=== PATIENT | female | born 1960 | race African-American/Black ===

== ENCOUNTER 2016-11-06 12:48 | Emergency (ER) | payer OTHER ==
[2016-11-06 12:54] VITALS: TEMP 97.7
[2016-11-06 13:21] LABS: COLOR YELLOW; LEUKOCYTE ESTERASE,URINE NEGATIVE (NEGATIVE); NITRITE,URINE NEGATIVE (NEGATIVE)
[2016-11-06 13:41] LABS: % IMMATURE GRANULYOCYTES 0.3 % (0.0-1.1); ABSOLUTE IMMATURE GRANULOCYTES 0.02 10^3/uL (0.00-0.10); ADD DIFF? NO; ADD MORPH? NO; ADD SCAN? NO; ATYPICAL LYMPHOCYTE FLAG 0 (0-99); FRAGMENT RBC FLAG 20 (0-99); HEMATOCRIT 40.5 % (38.0-47.0); HEMOGLOBIN 13.2 g/dL (12.6-16.3); LEFT SHIFT FLG 0 (0-99); LIPEMIA HEMOLYSIS FLAG 80 (0-99); MEAN CELL HEMOGLOBIN 25.2 pg (27.9-34.1); MEAN CELL HEMOGLOBIN CONCENTR. 32.6 g/dL (32.4-36.7); MEAN CELL VOLUME 77.4 fL (81.5-99.8); MEAN PLATELET VOLUME 10.7 fL (8.7-11.7); PLATELET CLUMPS FLAG 0 (0-99); PLATELET COUNT 286 10^3/uL (150-400); RED BLOOD CELL COUNT 5.23 10^6/uL (4.18-5.33); RED CELL DISTRIBUTION WIDTH 15.7 % (11.5-15.2)
[2016-11-06] MEDS ORDERED: KETOROLAC 15 MG/1 ML SDV IVP ONE ×2 (14:39)
[2016-11-06 14:40] VITALS: RESP 18
--- NOTE | 2016-11-06 14:43 | EDPHY ---
H & P Stated Complaint: abdominal pain 1 week Time Seen by Provider: 11/06/16 13:14 HPI/ROS: This 56 yo GO PO patient has a one-week history of left lower quadrant pain that increased over the past 48 hours to moderate severity baseline, worse with movement. She describes the pain as achy at baseline movement or pressure to the area. She has never had pain in this location before. She denies any associated symptoms. She has not tried any medications for the pain and she notes no other exacerbating or alleviating factors. She states that she came in today because the pain was increasing in intensity. ROS: No fevers chills or other constitutional symptoms HEENT: No URI symptoms or other complaints Pulmonary: No shortness of breath, cough or pleuritic pain Cardiovascular: No chest pain. GI: No upper belly pain. No nausea or vomiting. No change in her appetite. She reports normal bowel movements. : No urinary symptoms. Integumentary: No skin rash Endocrine: No polyuria or polydipsia Hematologic: No complaints Neuro: She has baseline dysarthria attributable to a previous stroke. No new complaints. Complete review of symptoms is otherwise negative. Source: Patient, Other (Patient was driven in by her female friend who also provides history.) Exam Limitations: No limitations - Medical/Surgical History PMH: Stroke Hx Asthma: Yes Hx Chronic Respiratory Disease: No Hx Diabetes: Yes Hx Cardiac Disease: No Hx Renal Disease: No Hx Cirrhosis: No Hx Alcoholism: No Hx HIV/AIDS: No Hx Splenectomy or Spleen Trauma: No Other PMH: hand surgery, stroke 8 years ago - Social History Smoking Status: Current every day smoker Alcohol Use: None Drug Use: None - Physical Exam Exam: Vital signs are normal with exception of mild hypertension 161/73 General Appearance: Pleasant black female Alert, no distress. Eyes: Pupils equal and round no pallor or injection. ENT, Mouth: Mucous membranes moist. Respiratory: There are no retractions, lungs are clear to auscultation. Cardiovascular: Regular rate and rhythm. No murmur gallop rub. No peripheral edema. Gastrointestinal: Normoactive, soft, moderate left lower quadrant tenderness with no guarding or rebound. Neurological: GCS 15. Patient has mild dysarthria. No other focal deficits are appreciated at this time. Skin: Warm and dry, no rashes. Musculoskeletal: Neck is supple nontender. Extremities are symmetrical, full range of motion. Psychiatric: Patient seems slightly giddy-nervous laughter but otherwise mood and affect are normal DIFFERENTIAL DIAGNOSIS: After history and physical exam differential diagnosis was considered for diverticulitis, constipation, UTI, diverticular abscess Constitutional: Initial Vital Signs Temperature (C) 36.5 C 11/06/16 12:50 Heart Rate 82 11/06/16 12:50 Respiratory Rate 20 11/06/16 12:50 Blood Pressure 161/73 H 11/06/16 12:50 O2 Sat (%) 97 11/06/16 12:50 O2 Delivery Mode Room Air Allergies/Adverse Reactions: No Known Allergies Allergy (Unverified 11/06/16 12:54) Home Medications: Medication Instructions Recorded Sulfamethox/Tmp 800/160 mg 1 tab PO BID #14 tab 11/06/16 [Bactrim Ds] traMADol [Ultram 50 mg (*)] 50 - 100 mg PO Q4 PRN #15 tab 11/06/16 Medical Decision Making ED Course/Re-evaluation: IV normal saline bolus, morphine 4 mg IV, after review of labs with normal creatinine, Toradol IV with improvement in pain. Discussion: Review of labs reveals normal CBC and unremarkable metabolic panel except for mild hyperglycemia. Urinalysis is also negative for infection or hematuria. I think this patient has a early diverticulitis given her classic physical exam findings. I counseled her regarding this. Will treat her with Bactrim. I do not think she has diverticular abscess or other complications given lack of fever, lack of any peritoneal signs and normal CBC. - Data Points Laboratory Results: Laboratory Results 11/06/16 13:30 11/06/16 13:30 Medications Given: Discontinued Medications Ketorolac Tromethamine (Toradol) 15 mg IVP EDNOW ONE Stop: 11/06/16 14:40 Last Admin: 11/06/16 15:06 Dose: Not Given Ketorolac Tromethamine (Toradol) 30 mg IVP EDNOW ONE Stop: 11/06/16 14:40 Last Admin: 11/06/16 15:00 Dose: 30 mg Morphine Sulfate (Morphine) 4 mg IVP EDNOW ONE Stop: 11/06/16 13:25 Last Admin: 11/06/16 13:58 Dose: 4 mg Departure - Departure Disposition: Home, Routine, Self-Care Clinical Impression: Diverticulitis Condition: Good Instructions: Diverticulitis (ED), Diverticulitis Diet (ED) Additional Instructions: Diagnosis: Diverticulitis Plan: Drink plenty fluids Ibuprofen if needed for pain-next does not tell 9 o'clock at [id number] mg per 6 hours as needed. Tylenol in addition as needed Tramadol in addition if needed. No driving, or alcohol on tramadol Bactrim antibiotic as prescribed Return for any significant worsening despite the treatment plan Follow up with her primary care physician for a recheck for any ongoing symptoms last beyond the next 5-7 days despite the treatment plan Referrals: Kalyan Freitas MD [[facility] [place] Primary Care Provider] - As per Instructions Prescriptions: Sulfamethox/Tmp 800/160 mg [Bactrim Ds] 1 tab PO BID #14 tab traMADol [Ultram 50 mg (*)] 50 - 100 mg PO Q4 PRN #15 tab PRN Reason: breakthrough pain
[2016-11-06] MEDS ORDERED: KETOROLAC 30 MG/1 ML SDV ONE (14:59)
[2016-11-06 15:05] LABS: ALANINE AMINOTRANSFERASE 30 IU/L (9-52); ALBUMIN 3.8 g/dL (3.5-5.0); ALKALINE PHOSPHATASE 107 IU/L (38-126); ANION GAP 12 mEq/L (8-16); ASPARTATE AMINOTRANSFERASE 25 IU/L (14-46); BILIRUBIN,TOTAL 0.3 mg/dL (0.1-1.4); CALCIUM 9.8 mg/dL (8.5-10.4); CARBON DIOXIDE 22 mEq/l (22-31); CHLORIDE 108 mEq/L (97-110); CREATININE 0.7 mg/dL (0.6-1.0); GLOMERULAR FILTRATION RATE > 60; GLUCOSE 260 mg/dL (70-100); POTASSIUM 3.6 mEq/L (3.5-5.2); SODIUM 142 mEq/L (134-144); TOTAL PROTEIN 7.1 g/dL (6.3-8.2)
[2016-11-06 15:10] VITALS: BP 150/87; PULSE 68; O2SAT 95
== END 2016-11-06 15:18 | disposition home or self-care (01) ==
LOC: CED 12:48
DX: K57.92 Diverticulitis of intestine, part unspecified, without perforation or abscess without bleeding (principal); E11.9 Type 2 diabetes mellitus without complications; J45.909 Unspecified asthma, uncomplicated; F17.200 Nicotine dependence, unspecified, uncomplicated
CPT/HCPCS: 80053-PO; 81003-PO; 82947-QW; 85025-PO; 96374; J1885

== ENCOUNTER 2016-12-28 16:17 | Observation (INO) | payer MEDICAID ==
--- NOTE | 2016-12-28 16:29 | CPEKG ---
Heart Rate: 83 RR Interval: 723 P-R Interval: 152 QRSD Interval: 82 QT Interval: 372 QTC Interval: 437 P Lloyd: 56 QRS Lloyd: 44 T Wave Lloyd: 49 EKG Severity - ABNORMAL ECG - EKG Impression: SINUS RHYTHM EKG Impression: LEFT ATRIAL ABNORMALITY Electronically Signed By: Paddy Corrigan 29-Dec-2016 11:07:05
[2016-12-28] MEDS ORDERED: ASPIRIN 81 MG CHEWABLE TAB PO ONE (16:34)
[2016-12-28 16:57] LABS: % IMMATURE GRANULYOCYTES 0.4 % (0.0-1.1); ABSOLUTE IMMATURE GRANULOCYTES 0.03 10^3/uL (0.00-0.10); ADD DIFF? NO; ADD MORPH? NO; ADD SCAN? NO; ATYPICAL LYMPHOCYTE FLAG 0 (0-99); FRAGMENT RBC FLAG 0 (0-99); HEMATOCRIT 42.2 % (38.0-47.0); HEMOGLOBIN 13.8 g/dL (12.6-16.3); LEFT SHIFT FLG 0 (0-99); LIPEMIA HEMOLYSIS FLAG 80 (0-99); MEAN CELL HEMOGLOBIN 25.2 pg (27.9-34.1); MEAN CELL HEMOGLOBIN CONCENTR. 32.7 g/dL (32.4-36.7); MEAN PLATELET VOLUME 11.1 fL (8.7-11.7); PLATELET CLUMPS FLAG 0 (0-99); PLATELET COUNT 275 10^3/uL (150-400); RED BLOOD CELL COUNT 5.48 10^6/uL (4.18-5.33); RED CELL DISTRIBUTION WIDTH 15.1 % (11.5-15.2)
[2016-12-28 17:04] LABS: APTT 28.2 SEC (23.0-38.0); INR 1.02 (0.83-1.16); PROTIME(PATIENT) 13.1 SEC (12.0-15.0)
[2016-12-28 17:13] LABS: ALANINE AMINOTRANSFERASE 40 IU/L (9-52); ALBUMIN 4.3 g/dL (3.5-5.0); ALKALINE PHOSPHATASE 111 IU/L (38-126); ANION GAP 16 mEq/L (8-16); ASPARTATE AMINOTRANSFERASE 27 IU/L (14-46); BILIRUBIN,TOTAL 0.6 mg/dL (0.1-1.4); BILIRUBIN-CONJUGATED 0.5 mg/dL (0.0-0.5); BILIRUBIN-UNCONJUGATED 0.1 mg/dL (0.0-1.1); CALCIUM 9.8 mg/dL (8.5-10.4); CARBON DIOXIDE 19 mEq/l (22-31); CHLORIDE 106 mEq/L (97-110); CREATININE 0.7 mg/dL (0.6-1.0); GLOMERULAR FILTRATION RATE > 60; GLUCOSE 192 mg/dL (70-100); MAGNESIUM 1.8 mg/dL (1.6-2.3); POTASSIUM 3.8 mEq/L (3.5-5.2); SODIUM 141 mEq/L (134-144); TOTAL PROTEIN 7.6 g/dL (6.3-8.2)
--- NOTE | 2016-12-28 17:55 | EDPHY ---
H & P Stated Complaint: left ant cp x2 weeks intermittent and sob. Denies other s/s's Time Seen by Provider: 12/28/16 16:28 HPI/ROS: CHIEF COMPLAINT: Chest pain History by patient HISTORY OF PRESENT ILLNESS: 56-year-old woman with history of hypertension, diabetes and asthma but has been off her medication for over a year for all of the presents complaining of chest pain which she localizes to the left side of her chest but can poorly characterized. It is associated with some diaphoresis from time to time but no and nausea. It is sometimes pleuritic in nature but she denies shortness of breath. She also complains of intermittent right arm and leg swelling. Her symptoms are not clearly brought on by exertion but she can't say they are not relieved by rest either. She has been having them daily , intermittently for the past couple weeks ago she has had similar symptoms in the past she has not sought medical attention. She has never had a cardiac evaluation. She does smoke. Her sister has heart disease but she is unclear what kind. She does not know her cholesterol. The patient has moved to [place] from [place] 1 and half years ago ago. REVIEW OF SYSTEMS: As in HPI, and all other systems reviewed and are negative - Medical/Surgical History Hx Asthma: Yes Hx Chronic Respiratory Disease: No Hx Diabetes: Yes Hx Cardiac Disease: No Hx Renal Disease: No Hx Cirrhosis: No Hx Alcoholism: No Hx HIV/AIDS: No Hx Splenectomy or Spleen Trauma: No Other PMH: Med hx-cva-hx with partial deficit-left sided weakness,asthma. Surg- rt index - Family History Significant Family History: Heart disease - Social History Smoking Status: Current every day smoker - Physical Exam Exam: General Appearance: Alert, obese, non ill-appearing. Eyes: Pupils equal and round no pallor or injection. ENT, Mouth: Mucous membranes moist. Respiratory: Normal, effort, lungs are clear to auscultation. No wheezes, rales or rhonchi. Cardiovascular: Regular rate and rhythm. S1, S2, no murmurs, gallops or rubs appreciated, positive left sternal border tenderness Gastrointestinal: Abdomen is soft and nontender, no masses, bowel sounds normal. Back: No CVA tenderness, no bony tenderness Neurological: Awake, alert and oriented x 3, no pronator drift, normal gait, no pronator drift Skin: Warm and mildly diaphoretic, no rashes. Musculoskeletal: No deformities or tenderness. Extremitie:s full range of motion, no edema Psychiatric: Patient has normal affect, there is no agitation. Constitutional: Initial Vital Signs Temperature (C) 36.3 C 12/28/16 16:27 Heart Rate 85 12/28/16 16:27 Respiratory Rate 24 H 12/28/16 16:27 Blood Pressure 167/102 H 12/28/16 16:27 O2 Sat (%) 97 12/28/16 16:27 O2 Delivery Mode Room Air Allergies/Adverse Reactions: No Known Allergies Allergy (Verified 12/28/16 16:24) Home Medications: Medication Instructions Recorded NK [No Known Home Meds] 12/28/16 Medical Decision Making - Diagnostics Imaging Results: Imaging Impressions Chest X-Ray 12/28/16 16:51 Impression: No acute pulmonary disease. Imaging: I viewed and interpreted images myself ED Course/Re-evaluation: 56-year-old woman with multiple cardiac risk factors presents with hypertension and ongoing chest pain. She was given aspirin. ECG was done immediately which showed normal sinus rhythm at a rate of 83 with left atrial enlargement and nonspecific ST abnormalities but no evidence of acute ischemia. There is no old EKG available for comparison. Chest x-ray showed nothing acute. Labs are notable for slightly low bicarb and elevated blood glucose but not severely elevated. A D-dimer was negative thus ruling out pulmonary embolism in this patient with a low pretest probability. First troponin was negative. Given the patient's multiple cardiac risk factors although there is no evidence for acute myocardial infarction at this time I cannot rule out cardiac angina as the cause of the patient's symptoms. She will therefore be admitted to [facility] for further evaluation treatment. I discussed the case with the hospitalist transportation operations manager, Dr. Schwartz, who accepts the patient in transfer to [facility]. - Data Points Laboratory Results: Laboratory Results 12/28/16 16:38 12/28/16 16:38 12/28/16 12/28/16 12/28/16 16:38 16:38 16:38 WBC 7.48 10^3/uL 10^3/uL (3.80-9.50) RBC 5.48 10^6/uL H 10^6/uL (4.18-5.33) Hgb 13.8 g/dL g/dL (12.6-16.3) Hct 42.2 % % (38.0-47.0) MCV 77.0 fL L fL (81.5-99.8) MCH 25.2 pg L pg (27.9-34.1) MCHC 32.7 g/dL g/dL (32.4-36.7) RDW 15.1 % % (11.5-15.2) Plt Count 275 10^3/uL 10^3/uL (150-400) MPV 11.1 fL fL (8.7-11.7) Neut % (Auto) 45.7 % % (39.3-74.2) Lymph % (Auto) 43.7 % % (15.0-45.0) [place] % (Auto) 8.2 % % (4.5-13.0) Eos % (Auto) 1.6 % % (0.6-7.6) Baso % (Auto) 0.4 % % (0.3-1.7) Nucleat RBC Rel Count 0.0 % % (0.0-0.2) Absolute Neuts (auto) 3.42 10^3/uL 10^3/uL (1.70-6.50) Absolute Lymphs (auto) 3.27 10^3/uL H 10^3/uL (1.00-3.00) Absolute Monos (auto) 0.61 10^3/uL 10^3/uL (0.30-0.80) Absolute Eos (auto) 0.12 10^3/uL 10^3/uL (0.03-0.40) Absolute Basos (auto) 0.03 10^3/uL 10^3/uL (0.02-0.10) Absolute Nucleated RBC 0.00 10^3/uL 10^3/uL (0-0.01) Immature Gran % 0.4 % % (0.0-1.1) Immature Gran # 0.03 10^3/uL 10^3/uL (0.00-0.10) PT INR APTT D-Dimer Sodium 141 mEq/L mEq/L (134-144) Potassium 3.8 mEq/L mEq/L (3.5-5.2) Chloride 106 mEq/L mEq/L (97-110) Carbon Dioxide 19 mEq/l L mEq/l (22-31) Anion Gap 16 mEq/L mEq/L (8-16) BUN 7 mg/dL mg/dL (7-23) Creatinine 0.7 mg/dL mg/dL (0.6-1.0) Estimated GFR > 60 Glucose 192 mg/dL H mg/dL (70-100) Calcium 9.8 mg/dL mg/dL (8.5-10.4) Magnesium 1.8 mg/dL mg/dL (1.6-2.3) Total Bilirubin 0.6 mg/dL mg/dL (0.1-1.4) Conjugated Bilirubin 0.5 mg/dL mg/dL (0.0-0.5) Unconjugated Bilirubin 0.1 mg/dL mg/dL (0.0-1.1) AST 27 IU/L IU/L (14-46) ALT 40 IU/L IU/L (9-52) Alkaline Phosphatase 111 IU/L IU/L (38-126) Creatine Kinase CK-MB (CK-2) Fraction Troponin I < 0.012 ng/mL ng/mL (0.000-0.034) Total Protein 7.6 g/dL g/dL (6.3-8.2) Albumin 4.3 g/dL g/dL (3.5-5.0) Lipase 121 IU/L IU/L (23-300) 12/28/16 12/28/16 16:38 16:38 WBC RBC Hgb Hct MCV MCH MCHC RDW Plt Count MPV Neut % (Auto) Lymph % (Auto) [place] % (Auto) Eos % (Auto) Baso % (Auto) Nucleat RBC Rel Count Absolute Neuts (auto) Absolute Lymphs (auto) Absolute Monos (auto) Absolute Eos (auto) Absolute Basos (auto) Absolute Nucleated RBC Immature Gran % Immature Gran # PT 13.1 SEC SEC (12.0-15.0) INR 1.02 (0.83-1.16) APTT 28.2 SEC SEC (23.0-38.0) D-Dimer 0.30 ug/mLFEU ug/mLFEU (0.00-0.50) Sodium Potassium Chloride Carbon Dioxide Anion Gap BUN Creatinine Estimated GFR Glucose Calcium Magnesium Total Bilirubin Conjugated Bilirubin Unconjugated Bilirubin AST ALT Alkaline Phosphatase Creatine Kinase Cancelled CK-MB (CK-2) Fraction Cancelled Troponin I Cancelled Total Protein Albumin Lipase Medications Given: Discontinued Medications Aspirin (Aspirin) 324 mg PO EDNOW ONE Stop: 12/28/16 16:35 Last Admin: 12/28/16 16:37 Dose: 324 mg Departure - Departure Disposition: [facility] Acute Clinical Impression: Hyperglycemia Chest pain Qualifiers: Chest pain type: unspecified Qualified Code(s): R07.9 - Chest pain, unspecified Hypertension Qualifiers: Hypertension type: unspecified Qualified Code(s): I10 - Essential (primary) hypertension Condition: Fair Referrals: NONE *PRIMARY CARE P,. [Primary Care Provider] - As per Instructions
--- NOTE | 2016-12-28 21:28 | CPEKG ---
Heart Rate: 74 RR Interval: 811 P-R Interval: 156 QRSD Interval: 86 QT Interval: 404 QTC Interval: 449 P [place]: 51 QRS [place]: 59 T Wave [place]: 71 EKG Severity - NORMAL ECG - EKG Impression: SINUS RHYTHM Electronically Signed By: Paddy Corrigan 29-Dec-2016 11:04:24
[2016-12-28] MEDS ORDERED: D50W 25 GM/50 ML SYR IVP PRN (21:44)
[2016-12-28] MEDS ORDERED: ACETAMINOPHEN 325 MG TAB PO PRN (21:44)
[2016-12-28] MEDS ORDERED: ONDANSETRON 4 MG/2 ML VIAL IVP PRN (21:44)
[2016-12-28] MEDS ORDERED: ONDANSETRON DISINTEGRATING 4 MG TAB PO PRN (21:44)
--- NOTE | 2016-12-28 22:13 | GHP ---
[f rep st] HISTORY AND PHYSICAL DATE OF ADMISSION: 12/28/2016 HISTORY OF PRESENT ILLNESS: The patient is a 56-year-old female with a history of hypertension, diab etes, stroke, who presents to urgent care with chest pain. She describes it on the left side of her chest. May or may not radiate to her arm or her jaw. It may or may not be exertional. Not __ as well as complete historian. She had previously been treated with multiple medications for thien rbidities but she stopped taking all of them about a year ago. She smokes intermittently. She has n ot had heart failure symptoms such as PND, orthopnea, or lower extremity edema. She has not had feve r or chills. She has not had sputum. REVIEW OF SYSTEMS: Complete 10-point review of systems conducted, and negative as in the HPI. PAST MEDICAL HISTORY: 1. Hypertension. 2. Diabetes. 3. History of stroke with residual expressive aphasia. 4. Asthma. ALLERGIES: No known drug allergies. HOME MEDICATIONS: None. SOCIAL HISTORY: She smoke cigarettes. Does not drink alcohol. Does not use drugs. Lives with a [facility]. FAMILY HISTORY: Notable for diabetes. PHYSICAL EXAMINATION: VITAL SIGNS: Temp 36.3, blood pressure 167/102, pulse 85, breathing 24 times a minute, 97% on room air. GENERAL: No acute distress. HEENT: Sclerae anicteric. Oropharynx nico r. Mucous membranes moist. NECK: Supple without lymphadenopathy or JVD. LUNGS: Clear to ausculta tion bilaterally. HEART: S1, S2. Without murmur. ABDOMEN: Soft, nontender, nondistended. LOWER EXTREMITIES: Without edema. Calves nontender. SKIN: Without rash. NEUROLOGIC: Shows aphasia. I did not test her left-sided weakness. DATABASE: EKG, interpreted by me, shows sinus at 83 with normal axis and intervals. No ST or T-wave changes. She had a 2nd episode of chest pain, so I repeated and it is unchanged. A chest x-ray, in terpreted by me, shows cardiomegaly with no acute cardiopulmonary disease. LABORATORY DATA: White count 7.5, hematocrit 42, MCV is low at 77, platelets are 275. D-dimer 0.3, sodium 141, potassium 3.8, chloride 106, bicarb 19, BUN 7, creatinine 0.7, glucose 192. LFTs normal. Troponin less than 0.012. I discussed the case with Dr. Veronica Trejo. ASSESSMENT/PLAN: A 56-year-old female with chest pain. 1. Chest pain. Pulmonary embolism is ruled out with D-dimer. I do have concern that this could rep resent an anginal equivalent although her story is somewhat shifty. We will cycle troponins and chec k a stress test in the morning. We will do an exercise treadmill. Also order an echocardiogram give n her long-standing history of hypertension that is untreated. 2. Diabetes. We will put her on insulin sliding scale. Check a hemoglobin A1c. This will help wit h a choice to pursue insulin versus pills. 3. Hypertension. I started her on lisinopril. 4. Microcytosis. Check iron studies. I doubt she has had a colonoscopy. 5. History of cerebrovascular accident. Start her on aspirin. 6. Chest pain addendum. We will check a lipid panel in the morning. PROPHYLAXIS: Pharmacologic prophylaxis indicated if in the hospital longer than 24 hours. DISPOSITION: Observation status. /[id number]/MODL
[2016-12-29 05:40] LABS: CHOLESTEROL 291 mg/dL (140-220); CHOLESTEROL/HDL RATIO 6.61 RATIO (1.00-4.44); HIGH DENSITY LIPOPROTEIN 44 mg/dL (40-85); LDL/HDL RATIO 4.91 RATIO (1.00-3.22); LOW DENSITY LIPOPROTEIN 216 mg/dL (80-100); NON-HIGH DENSITY LIPOPROTEIN 247 mg/dL (90-129); TRIGLYCERIDE 155 mg/dL (35-135); VERY LOW DENSITY LIPOPROTEINS 31 mg/dL (8-25)
[2016-12-29 05:49] LABS: % SATURATION 16 % (20-55); TOTAL IRON BINDING CAPACITY 301 ug/dL (260-490)
[2016-12-29 05:53] LABS: TROPONIN I < 0.012 ng/mL (0.000-0.034)
[2016-12-29 06:16] LABS: FERRITIN - BCH 92.7 ng/mL (6.2-264.0)
[2016-12-29 07:17] VITALS: TEMP 98.3
[2016-12-29] MEDS ORDERED: ENOXAPARIN 30 MG/0.3 ML SYR SC SCH (09:00)
[2016-12-29] MEDS ORDERED: ASPIRIN 81 MG CHEWABLE TAB PO SCH (09:00)
[2016-12-29] MEDS ORDERED: LISINOPRIL 5 MG TAB PO SCH (09:00)
[2016-12-29] MEDS ORDERED: REGADENOSON 0.4 MG/5 ML SYR IVP ONE (09:11)
[2016-12-29 10:04] LABS: HEMOGLOBIN A1C 9.3 % (4.0-6.0)
[2016-12-29] MEDS: INSULIN LISPRO 100 UNIT/ML SC SCH ×2 (10:27→13:31)
--- NOTE | 2016-12-29 11:20 | ECHO ---
[email or web address] [address] [address] Main: [phone] Fax: [email or web address] Echocardiogram Name: ANIKA CHI MR#: [id number] Study Date: 12/29/2016 Study Time: 07:52 AM Date of : 1960 Age: 56 year(s) Height: 139.7 cm (55 in.) Weight: 63.5 kg (140 lb.) BSA: 1.51 m2 Gender: Female Examination: Echo Indication: Chest Pain Image Quality: Contrast: Requested by: Neeraj Schwartz BP: 126 mmHg/77 mmHg Heart Rate: Rhythm: Indication: Chest Pain Procedure Staff Ordering Physician: JAVI Sole Trimmer: Alem Rios Requesting MD: Reading Physician: Jonah Stuart Conclusions: Normal size left ventricle. Moderate concentric LV hypertrophy. Normal global systolic LV function (EF 77 %). Mild LVOT obstruction. Highest LVOT velocity was 1.65 m/s. Normal size right ventricle. The left atrium is normal in size. The right atrium is normal in size. Chordal systolic anterior motion. The aortic valve is tri-leaflet and functions normally. The tricuspid valve appears normal. Trivial anterior pericardial effusion. Measurements: Chambers Valvular Assessment AV/MV Valvular Assessment TV/PV Normal Normal Normal Name Value Range Name Value Range Name Value Range Ao Lisa (MM): 2.8 cm (2.2 cm-3.7 AV Vmax: 1.06 m/s (1 m/s-1.7 cm) m/s) IVSd (2D): 1.0 cm (0.6 cm-1.1 AV maxP mmHg ( - ) cm) MV E Vmax: 0.45 cm/s ( - ) LVDd (2D): 4.2 cm (3.9 cm-5.3 MV A Vmax: 0.74 cm/s ( - ) cm) MV E/A: 0.61 ( - ) LVDs (2D): 2.0 cm (2.1 cm-4 cm) LVPWd (2D): 1.0 cm ( - ) LVEF (MOD4): 77 % (>=55 %) Continued Measurements: Patient: ANIKA CHI Study Date: 12/29/2016 Page 1 of 2 07:52 AM Chambers Valvular Assessment AV/MV Name Value Name Value LA Area: 17.8 cm2 MV E/E' Septal: 8.70 LA Volume: 49 ml MV E/E' Lateral: 8.20 LA Volume Index: 32.5 ml/m2 Findings: Left Ventricle: Normal size left ventricle. Moderate concentric LV hypertrophy. Normal global systolic LV function (EF 77 %). Mild LVOT obstruction. Highest LVOT velocity was 1.65 m/s. Right Ventricle: Normal size right ventricle. Left Atrium: The left atrium is normal in size. Right Atrium: The right atrium is normal in size. Mitral Valve: Chordal systolic anterior motion. Aortic Valve: The aortic valve is tri-leaflet and functions normally. Tricuspid Valve: The tricuspid valve appears normal. Pulmonic Valve: Pulmonary valve not well visualized. Great Vessels: Pericardium: Trivial anterior pericardial effusion. (No Signature Object) Patient: ANIKA CHI Study Date: 12/29/2016 Page 2 of 2 07:52 AM [id number]
[2016-12-29 11:32] VITALS: BP 151/72; PULSE 76; RESP 16; O2SAT 95
--- NOTE | 2016-12-29 12:46 | CPR ---
[f rep st] NONINVASIVE CARDIAC PROCEDURE REPORT DATE OF PROCEDURE: 12/29/2016 REASON FOR TEST: Chest pain. Resting EKG shows a regular sinus rhythm with a rate of 64. She has anterior T-wave inversion. AVR and aVL, no ischemic changes noted. Resting blood pressure 130/70, resting heart rate 64, oxygen sat uration 95%. She is asymptomatic. STRESS PORTION: Lexiscan nuclear stress test. Lexiscan was injected rapidly, followed by saline flush. Cardiolite was then injected, followed by s zoran flush per protocol. There were no EKG changes. Blood pressure to 122/70, oxygen saturation 98 %. Peak heart rate 92. She did feel flushed, uncomfortable, abdominal discomfort. There were no EK G changes. RECOVERY: She did spontaneously recover with 1 sip of caffeine. Her abdominal discomfort dissipated by conclusion of recovery. Blood pressure 130/70, heart rate 83 and regular, oxygen saturation 98%. She remains asymptomatic. No EKG changes. /[id number]/MODL
[2016-12-29 13:36] LABS: GLUCOSE 161 mg/dL (70-100)
--- NOTE | 2016-12-29 13:37 | PDDCSUM ---
Discharge Summary Discharge Summary: DISCHARGE SUMMARY FOLLOW-UP ITEMS: Repeat outpatient LDL hemoglobin A1c creatinine BUN and lytes DATE OF ADMISSION: 12/28/2016 DATE OF DISCHARGE: 12/29/2016 DISCHARGE DIAGNOSES: 1. Acute chest pain 2. Diabetes mellitus type 2 3. Hyperlipidemia 4. Hypertension 5. Suspected GERD 6. Conjunctivitis CONSULTATIONS: None PROCEDURES / IMAGING: Nuclear medicine stress test demonstrating no inducible ischemia, echocardiogram demonstrating normal ejection fraction, left ventricular hypertrophy CHIEF COMPLAINT: Acute chest pain SUBJECTIVE: Patient reports no symptoms at time of discharge, she reports she is feeling well and excited to be discharged PHYSICAL EXAM ON DISCHARGE: Systolic blood pressure is 120, heart rate 70, afebrile overnight, satting on room air, lungs are clear to auscultation bilaterally, pain level 0/10 LABS ON DISCHARGE: LDL 216, hemoglobin A1c 9.3%, D-dimer negative, creatinine normal HOSPITAL COURSE BY PROBLEM: 1. Acute chest pain. Atypical, ruled out for acute coronary syndrome with negative troponin x3, ruled out for pulmonary embolism with negative D-dimer, ruled out for inducible ischemia with negative nuclear medicine stress test, ruled out for cardiomyopathy with normal echocardiogram. Most likely cause of her chest pain is either uncontrolled hypertension or GERD. We have offered the patient treatment for both of these issues and she is excited to get started with her new medications 2. Diabetes mellitus type 2. Patient has recently been diagnosed with diabetes but she has not been initiated on any medications, lack of access to local medical care. She was initiated on metformin 500 mg twice daily and I recommend repeat hemoglobin A1c in 3 months. She can be up titrated to 1000 mg twice daily sooner than that if she tolerates the medication from a GI perspective. 3. Hyperlipidemia. LDL is 216, warrants lipid-lowering agent, initiate pravastatin 20 mg daily and up titrate with repeat lipid panel in 6 weeks. 4. Hypertension. Suspect chronic hypertension with LVH on echocardiogram, initiated on ANGELICA-inhibitor, repeat creatinine BUN and lytes in the outpatient setting. 5. Suspected GERD. Suspect this is the cause of patient's presenting symptom, recommended initiation with H2 evert scheduled for 1 month, as needed Tums, follow up with primary care provider. 6. Conjunctivitis. Patient does have sunken juncture give irritation in her left eye, given the unilateral nature, bacterial versus viral infectious considerations are appropriate. Also possible the patient may be experiencing acute allergic reaction in the setting of recently relocating to angiography. I recommended initiation of Zyrtec, engaging affect, prior to initiating ciprofloxacin eyedrops. DISCHARGE MEDICATIONS: Please see official discharge medication reconciliation sheet in chart , metformin 500 mg twice daily, aspirin 81 mg daily, pravastatin 20 mg at bedtime , lisinopril 5 mg daily, ranitidine 150 mg twice daily, Zyrtec 10 mg at bedtime , ciprofloxacin eye drops if needed. DISCHARGE INSTRUCTIONS: [facility].
--- NOTE | 2016-12-29 17:04 | ASDISCHSUM ---
Discharge Information Plan Status:Home with No Needs Medically Cleared to Leave:12/29/2016 Discharge Date:12/29/2016 02:54 PM CM D/C Disposition:Home, Routine, Self-Care ADT D/C Disposition:Home, Routine, Self-Care Projected Discharge Date:12/29/2016 12:00 AM Transportation at D/C: Discharge Delay Reason: Follow-Up Date:12/29/2016 12:00 AM Discharge Slot: Final Diagnosis: Placement Information Patient Contact Information Contact Name:MARIA A Relationship:Sister Address: Work Phone: City: [facility] Phone: State/[employer] [address] Code: Email: Financial Information Financial Class: Primary Plan Desc:KATIE TIMMONS Primary Plan Number:[id number] Secondary Plan Desc: Secondary Plan Number: Assessment Information Intervention Information
== END 2016-12-29 14:54 | disposition home or self-care (01) ==
LOC: CED 16:17 → CEDHOLD 17:57 → CED 20:17 → F2W 20:53
PROVIDERS: ADMIT Internal Medicine; ATTEND Internal Medicine
DX: R07.9 Chest pain, unspecified (principal); E11.65 Type 2 diabetes mellitus with hyperglycemia; E78.5 Hyperlipidemia, unspecified; I10 Essential (primary) hypertension; H10.9 Unspecified conjunctivitis; J45.909 Unspecified asthma, uncomplicated; I69.954 Hemiplegia and hemiparesis following unspecified cerebrovascular disease affecting left non-dominant side; F17.210 Nicotine dependence, cigarettes, uncomplicated; Z75.3 Unavailability and inaccessibility of health-care facilities; Z82.49 Family history of ischemic heart disease and other diseases of the circulatory system
CPT/HCPCS: 71020; 78452; 93005; 93017; 93306; 97165; 99285; A9500; G0378; 80048-PO; 80076-PO; 82947-QW; 83690-PO; 83735-PO; 84484-PO; 85025-PO; 85378-PO; 85610-PO; 85730-PO; J1650; J2785